=== PATIENT | male | born 1995 | race Caucasian/White ===

== ENCOUNTER 2017-01-23 16:09 | Emergency (ER) | payer BC ==
--- NOTE | 2017-01-24 13:05 | ER ---
ADMIT: 01/23/2017 RM/LOC: ER [facility] MR#: [id number] [place], [place] [id number] [facility] [address] [place] [address] Emergency Room Report SEX: M AGE: 21 : 1995 DATE: 01/23/2017 HISTORY OF PRESENT ILLNESS: The patient is a 21-year-old male, came here to ER with chief complaint right arm pain allegedly after pulling on the right hand during the water sport, the patient stated the incident happened today. The patient denies any head trauma or loss of conscious or other trauma to other parts of the body. The patient complains moderate pain, which increased in severity in the anterior right arm and some swelling in the area, pain increased with flexion of the right elbow. The patient denies similar symptoms in the past. The patient denies any numbness or tingling. PHYSICAL EXAMINATION: There are no signs of trauma in head and neck, chest, and abdomen, and in the right upper extremity, there is some swelling in the right anterior arm in the bicipital muscle area. In the physical examination, the patient can mildly flex the elbow, but his range of motion is limited because of the swelling and pain, range of motion of the right shoulder is normal, anterior interosseous nerve function on the right side is normal, test for radial motor nerve and also all normal motor nerve of the right hand is mildly decreased both because of the pain and swelling of the area, which stops the patient from trying more. But, the patient can perform the exam to some degree. There is no thickening of the bicipital muscle. There is no sensory deficit. X-ray of the right arm and right for forearm and elbow is negative for any fractures or dislocations. The patient was put on a sling, was given some Quincy for pain control and was advised to use Motrin for decrease in swelling, using Quincy for breakthrough pain and also advised to follow up with the Orthopedic Surgery clinic in a week, with diagnosis of right arm pain and questionable right bicipital tendon injury and strain. Alvin Kim MD/ nataliya JOB #: [id number] CC: Sravan Weiner MD, Attending Physician Abel Ann MD, Family Physician
== END 2017-01-23 17:10 | disposition home or self-care (01) ==
LOC: ER 16:09
DX: M79.601 Pain in right arm (principal)